=== PATIENT | male | born 1965 | race American Indian/Alaskan Native ===

== ENCOUNTER 2017-02-05 18:09 | Emergency (ER) | payer OTHER ==
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
[2017-02-06 00:18] VITALS: BP 128/80
== END 2017-02-06 00:16 | disposition home or self-care (01) ==
LOC: ED 18:09
DX: M79.1 Myalgia (principal); M54.5 Low back pain; M25.511 Pain in right shoulder; V49.49XA Driver injured in collision with other motor vehicles in traffic accident, initial encounter; Y93.9 Activity, unspecified; Y92.9 Unspecified place or not applicable; Y99.9 Unspecified external cause status
CPT/HCPCS: 99282